=== PATIENT | female | born 1965 | race Hispanic/Latino ===

== ENCOUNTER 2018-05-21 19:08 | Emergency (ER) | payer OTHER ==
[2018-05-21 19:32] VITALS: RESP 16; TEMP 98; BMI 19.8
[2018-05-21] MEDS ORDERED: Ciprofloxacin 0.3% OPTH SOLN OS STA (20:36)
--- NOTE | 2018-05-21 20:36 | ED PDOC ---
Arrival/HPI - General Chief Complaint: Eye Problem Historian: Patient - History of Present Illness Narrative History of Present Illness (Text): 05/21/18 20:23 52 y/o female, no significant pmh, penicillin allergy, post menopausal, c/o lt. eye irritation and pain started today when putting on the lt. eye contact. Pt. stated that she was placing on the lt. eye contact with discomfort, discomfort entire day, more discomfort when taking off the contact this evening, tearing, wears glasses as well, last tetanus under 7 years ago, no change in vision, no painful movement of the eye, no other medical or psychological complaints. Past Medical History - Provider Review Nursing Documentation Reviewed: Yes - Reproductive Menopause: Yes Family/Social History - Physician Review Nursing Documentation Reviewed: Yes Family/Social History: Unknown Family HX Allergies/Home Meds Allergies/Adverse Reactions: Allergies Penicillins Allergy (Verified 05/21/18 19:32) RASH Review of Systems - Review of Systems Constitutional: absent: Fatigue, Fevers Eyes: Other (lt. eye irritation). absent: Vision Changes ENT: absent: Hearing Changes, Sore Throat, Rhinorrhea Cardiovascular: absent: Chest Pain Gastrointestinal: absent: Abdominal Pain, Nausea, Vomiting Musculoskeletal: absent: Arthralgias, Back Pain Skin: absent: Rash, Pruritis Neurological: absent: Headache, Dizziness Psychiatric: absent: Anxiety, Depression, Suicidal Ideation Physical Exam Vital Signs Reviewed: Yes Vital Signs Temp Pulse Resp BP Pulse Ox 05/21/18 19:30 98 F 68 16 123/91 H 99 Temperature: Afebrile Blood Pressure: Normal Pulse: Regular Respiratory Rate: Normal Appearance: Positive for: Well-Appearing, Non-Toxic, Comfortable Pain Distress: Mild Mental Status: Positive for: Alert and Oriented X 3 - Systems Exam Head: Present: Atraumatic, Normocephalic Pupils: Present: PERRL Extroacular Muscles: Present: EOMI. No: Gaze Palsy, Entrapment Conjunctiva: Present: Normal, Other (Eyes: bilateral vision w/o correction 20/30, lt. eye w/o correction 20/30 vs. rt. eye w/o correction 20/30, lt. eye intraocular pressure 16, lt. eye examined with fluorsein strip show there is mild corneal abrasion at 6 'O Clock position with no laceration with negative elio sign on the left eye, upper and lower eyelids everted and no visible foreign bodies or laceration. ). No: Injected, Icteric Mouth: Present: Moist Mucous Membranes Nose (External): Present: Atraumatic. No: Abrasion, Contusion Nose (Internal): Present: Normal Inspection, No Active Bleeding. No: Rhinorrhea, Septal Hematoma, Epistaxis Neck: Present: Normal Range of Motion Respiratory/Chest: Present: Clear to Auscultation, Good Air Exchange. No: Respiratory Distress, Accessory Muscle Use Cardiovascular: Present: Regular Rate and Rhythm, Normal S1, S2. No: Murmurs Abdomen: No: Tenderness, Distention, Peritoneal Signs Back: Present: Normal Inspection Upper Extremity: Present: Normal Inspection. No: Cyanosis, Edema Lower Extremity: Present: Normal Inspection. No: Edema Neurological: Present: GCS=15, CN II-XII Intact, Speech Normal Skin: Present: Warm, Dry, Normal Color. No: Rashes Psychiatric: Present: Alert, Oriented x 3, Normal Insight, Normal Concentration Medical Decision Making ED Course and Treatment: 05/21/18 20:42 -Ciloxin ordered. pt. feels much better now, advised no contacts until clear by opthalmologist. -Discharge home with ciloxin, tylenol for pain as needed, use glasses and no contact for the eye until clear by the opthalmologist, follow up with your own pmd and opthalmologist within 2 days, return to the Er for any new or worsening signs or symptoms. - PA / COUNSELOR SUPERVISOR / Resident Statement MD/DO has reviewed & agrees with the documentation as recorded. Disposition/Present on Arrival - Present on Arrival Any Indicators Present on Arrival: No History of DVT/PE: No History of Uncontrolled Diabetes: No Urinary Catheter: No History of Decub. Ulcer: No History Surgical Site Infection Following: None - Disposition Have Diagnosis and Disposition been Completed?: Yes Diagnosis: Corneal abrasion Disposition: HOME/ ROUTINE Disposition Time: 20:43 Patient Plan: Discharge Condition: IMPROVED Discharge Instructions (ExitCare): Corneal Abrasion Additional Instructions: -Discharge home with ciloxin, tylenol for pain as needed, use glasses and no contact for the eye until clear by the opthalmologist, follow up with your own pmd and opthalmologist within 2 days, return to the Er for any new or worsening signs or symptoms. Prescriptions: Ciprofloxacin 0.3% [Ciloxan 0.3% Ophth SOLN] 2 drop OS Q4 #1 bottle Referrals: FAMILY PROVIDER,NO [Non-Staff] - Follow up with primary Isaias Crooks MD [Staff Provider] - Follow up with primary [facility] [place] - Follow up with primary Forms: [employer] ([place]ami), WORK NOTE
[2018-05-21 20:53] VITALS: BP 122/86; PULSE 72; O2SAT 100
== END 2018-05-21 20:53 | disposition home or self-care (01) ==
LOC: ED 19:08
DX: S05.02XA Injury of conjunctiva and corneal abrasion without foreign body, left eye, initial encounter (principal); X58.XXXA Exposure to other specified factors, initial encounter